=== PATIENT | male | born 1990 | race Native Hawaiian/Other Pacific Islander ===

== ENCOUNTER 2016-12-26 09:03 | Emergency (ER) | payer OTHER ==
[~2016-12-26] VITALS: Ht 172.7 cm; Wt 72.6 kg
[2016-12-26 10:00] LABS: PLATELET COUNT 223 K/uL (142-355)
[2016-12-26 10:10] LABS: POTASSIUM 4.1 mmol/L (3.6-5.2); SODIUM 136 mmol/L (136-145)
[2016-12-26 11:42] VITALS: BP 111/66; TEMP 98
== END 2016-12-26 11:52 ==
LOC: ED 09:03
PROVIDERS: Emergency Medicine
DX: R55 Syncope and collapse (principal); I49.8 Other specified cardiac arrhythmias
CPT/HCPCS: 36415; 80053; 80307; 85027; 93005; 96360; 99284; G0479